=== PATIENT | female | born 1945 | race African-American/Black ===

== ENCOUNTER 2018-12-09 22:48 | Emergency (ER) | payer MEDICARE, OTHER ==
[~2018-12-09] VITALS: Ht 165.1 cm; Wt 155.0 kg
[~2018-12-09 22:48] MED LIST: NO MEDS
[2018-12-10 00:19] LABS: CHLORIDE 107 mEq/L (98-107)
[2018-12-10 00:26] LABS: CLARITY URINE TURBID (CLEAR); COLOR URINE YELLOW (YELLOW); KETONES URINE NEGATIVE (NEGATIVE); LEUKOCYTE ESTERASE URINE 3+ (NEGATIVE); NITRITE URINE NEGATIVE (NEGATIVE); OCCULT BLOOD URINE 2+ (NEGATIVE); PH URINE 6.5 (4.5-8.0); PROTEIN URINE NEGATIVE (NEGATIVE); SPECIFIC GRAVITY URINE 1.007 (1.005-1.030)
[2018-12-10 02:51] LABS: BASOPHILS % 0.9 % (0.0-2.0); HEMATOCRIT. 32.8 % (36.0-48.0); HEMOGLOBIN. 10.9 g/dL (12.0-16.0); LYMPHOCYTES % 21.2 % (20.0-50.0); MEAN CORPUSCULAR HEMOGLOBIN 25.9 pg (28.0-32.0); MEAN CORPUSCULAR VOLUME 77.9 fL (81.0-99.0); MEAN PLATELET VOLUME 10.3 fl (7.4-10.4); MONOCYTES % 10.7 % (2.0-8.0); NEUTROPHILS % 67.2 % (40.0-76.0); PLATELET 85 x1000/uL (130-400); RED CELL DISTRIBUTION WIDTH 27.1 % (11.6-14.6)
[2018-12-10 02:56] LABS: PLATELET ESTIMATE DECREASED
[2018-12-10 04:47] VITALS: BP 148/76
== END 2018-12-10 04:48 | disposition home or self-care (01) ==
LOC: ER 22:48
DX: N39.0 Urinary tract infection, site not specified (principal)
CPT/HCPCS: 36415; 80048; 81003; 87106; 99283

== ENCOUNTER 2019-05-04 15:17 | Emergency (ER) | payer MEDICARE, OTHER ==
[~2019-05-04] VITALS: Ht 167.6 cm; Wt 137.0 kg
[2019-05-04 15:35] VITALS: BP 115/53
== END 2019-05-04 21:23 | disposition left against medical advice (07) ==
LOC: ER 15:17
DX: Z53.21 Procedure and treatment not carried out due to patient leaving prior to being seen by health care provider (principal)

== ENCOUNTER 2022-11-17 02:20 | Emergency (ER) | payer MEDICARE, OTHER ==
[~2022-11-17] VITALS: Ht 167.6 cm; Wt 159.1 kg
[2022-11-17 02:23] VITALS: O2SAT 96
[2022-11-17 03:03] VITALS: BP 165/77; PULSE 77; RESP 18; TEMP 98.2
[2022-11-17 03:48] LABS: EOSINOPHILS % 3.9 % (0.0-5.0); HEMATOCRIT. 45.8 % (36.0-48.0); HEMOGLOBIN. 16.1 g/dL (12.0-16.0); LYMPHOCYTES % 22.9 % (20.0-50.0); MEAN CORPUSCULAR HGB CONC 35.1 g/dL (31.0-37.0); MEAN CORPUSCULAR VOLUME 91.3 fL (81.0-99.0); MONOCYTES % 10.1 % (2.0-8.0); NEUTROPHILS % 62.1 % (40.0-76.0); RED BLOOD CELL COUNT 5.02 mill/uL (4.2-5.4); RED CELL DISTRIBUTION WIDTH 14.1 % (11.6-14.6); WHITE BLOOD COUNT 8.1 x1000/uL (4.5-11.0)
[2022-11-17 03:49] LABS: CLARITY URINE CLOUDY (CLEAR); COLOR URINE YELLOW (YELLOW); GLUCOSE URINE NEGATIVE (NEGATIVE); KETONES URINE NEGATIVE (NEGATIVE); LEUKOCYTE ESTERASE URINE 2+ (NEGATIVE); NITRITE URINE NEGATIVE (NEGATIVE); OCCULT BLOOD URINE 3+ (NEGATIVE); PH URINE 7.5 (4.5-8.0); PROTEIN URINE TRACE (NEGATIVE); SPECIFIC GRAVITY URINE 1.004 (1.005-1.030)
[2022-11-17 03:51] LABS: SQUAMOUS EPITHELIAL CELL URINE NONE SEEN /lpf (RARE/1+)
[2022-11-17 03:56] LABS: CHLORIDE 98 mEq/L (98-107); INDEX HEMOLYSI 1 (1-3); INDEX ICTERIC 2 (1-4); INDEX LIPEMIC 1 (1-3); POTASSIUM 3.3 mEq/L (3.5-5.1); SODIUM 132 mEq/L (136-145)
[2022-11-17 04:00] LABS: DIFFERENTIAL COMMENT 1
[2022-11-17 04:02] LABS: ALANINE AMINOTRANSFERASE 279 IU/L (13-61); ALBUMIN 2.2 g/dL (3.4-5.0); ASPARTATE AMINOTRANSFERASE 572 IU/L (15-37); BILIRUBIN TOTAL 2.8 mg/dL (0.1-1.0); CALCIUM 8.2 mg/dL (8.5-10.1); CARBON DIOXIDE 29 mEq/L (21-32); CREATININE 0.6 mg/dL (0.6-1.3); GLUCOSE 99 mg/dL (70-105); PROTEIN TOTAL 8.7 g/dL (6.0-8.3); UREA NITROGEN BLOOD 4 mg/dL (7-21)
[2022-11-17 04:15] LABS: MEAN PLATELET VOLUME 10.1 fl (7.4-10.4); PLATELET 117 x1000/uL (130-400)
[2022-11-17] MEDS ORDERED: CEPH500C2 MT (05:03)
[2022-11-17 05:14] LABS: BACTERIA URINE NONE SEEN; RBC URINE 0-2 /hpf (0-2)
[2022-11-17 05:15] LABS: YEAST URINE 2+
== END 2022-11-17 19:18 | disposition home or self-care (01) ==
LOC: ER 02:20
DX: N39.0 Urinary tract infection, site not specified (principal); I10 Essential (primary) hypertension; R30.9 Painful micturition, unspecified; N28.9 Disorder of kidney and ureter, unspecified; K74.60 Unspecified cirrhosis of liver; Z86.73 Personal history of transient ischemic attack (TIA), and cerebral infarction without residual deficits; Z90.49 Acquired absence of other specified parts of digestive tract
CPT/HCPCS: 36415; 80053; 81003; 85025; 99283